=== PATIENT | male | born 1945 | race African-American/Black ===

== ENCOUNTER 2024-11-28 23:01 | Inpatient (IN) | payer MEDICARE, OTHER ==
[~2024-11-28] VITALS: Ht 165.1 cm; Wt 102.1 kg
[2024-11-28 23:59] LABS: BASOPHILS % (AUTO) 0.8 % (0.0-2.0); EOSINOPHILS # (AUTO) 0.3 K/uL (0.0-0.7); EOSINOPHILS % (AUTO) 6.3 % (0.0-6.0); HEMATOCRIT 44 % (39-51); HEMOGLOBIN 14.8 g/dL (13.5-17.5); LYMPHOCYTES # (AUTO) 1.9 K/uL (0.8-4.8); LYMPHOCYTES % (AUTO) 47.4 % (20.0-44.0); MEAN CORPUSCULAR HEMOGLOBIN 31 PG (26.0-33.0); MEAN CORPUSCULAR HGB CONC 33 g/dl (31.0-36.0); MEAN CORPUSCULAR VOLUME 94 fL (80-96); MONOCYTES # (AUTO) 0.4 K/uL (0.1-1.30); MONOCYTES % (AUTO) 8.9 % (2.0-12.0); NEUTROPHILS # (AUTO) 1.5 K/uL (1.8-8.9); NEUTROPHILS % (AUTO) 36.6 % (43.0-81.0); PLATELET COUNT (AUTO) 209 K/uL (150-450); RED BLOOD CELL COUNT(AUTO) 4.71 MIL/uL (4.5-6.0); RED CELL DISTRIBUTION WIDTH 14.3 % (11.5-15.0); WHITE BLOOD COUNT (AUTO) 4.1 K/uL (4.3-11.0)
[2024-11-29 00:04] LABS: CARBON DIOXIDE 26 mmol/L (21-32); CHLORIDE 106 mmol/L (98-107); CREATININE 1.2 mg/dL (0.6-1.3); GLUCOSE 180 mg/dL (74-106); POTASSIUM 3.7 mmol/L (3.5-5.1); SODIUM SERUM 139 mmol/L (136-145); UREA NITROGEN, BLOOD 18 mg/dL (7-18)
[2024-11-29 00:09] LABS: ALANINE AMINOTRANSFERASE 20 U/L (12-78); ALBUMIN 3.5 g/dL (3.4-5.0); ALKALINE PHOSPHATASE 195 U/L (46-116); ASPARTATE AMINOTRANSFERASE 22 U/L (15-37); BILIRUBIN,DIRECT 0.1 mg/dL (0.0-0.2); BILIRUBIN,TOTAL 0.4 mg/dL (0.2-1.0); LIPASE 79 U/L (16-77); TOTAL PROTEIN, SERUM 7.8 g/dL (6.4-8.2)
[2024-11-29] MEDS: ASPIRIN 325 MG TABLET PO ONE (00:36)
[2024-11-29] MEDS ORDERED: OMEP20TA5 PO (00:59)
[2024-11-29] MEDS ORDERED: LISI2.5T2 PO (00:59)
[2024-11-29] MEDS ORDERED: HALO10TA13 PO (00:59)
[2024-11-29] MEDS ORDERED: OMEG1CAP40 PO (00:59)
[2024-11-29] MEDS ORDERED: [UNRECOGNIZED DRUG - CODE] PO (00:59)
[2024-11-29] MEDS ORDERED: SODI650T PO (00:59)
[2024-11-29] MEDS ORDERED: LEVO75TA7 PO (00:59)
[2024-11-29] MEDS ORDERED: LACT10SO58 PO (00:59)
[2024-11-29] MEDS ORDERED: LUBI24CA5 PO (00:59)
[2024-11-29] MEDS ORDERED: INSU100V39 SQ (00:59)
[2024-11-29] MEDS ORDERED: SERT50TA PO (00:59)
[2024-11-29] MEDS ORDERED: PATI8.4P PO (00:59)
[2024-11-29] MEDS ORDERED: DOCU250C14 PO (00:59)
[2024-11-29] MEDS ORDERED: EMPA10TA PO (00:59)
[2024-11-29] MEDS ORDERED: OLAN15TA3 PO (00:59)
[2024-11-29] MEDS ORDERED: FOLI0.4T6 PO (00:59)
[2024-11-29] MEDS ORDERED: EZET10TA15 PO (00:59)
[2024-11-29] MEDS ORDERED: INSU100V7 SQ (00:59)
[2024-11-29] MEDS ORDERED: FURO20TA4 PO (00:59)
[2024-11-29] MEDS ORDERED: MAGNESIUM HYDROXIDE 30 ML UDC PO PRN (01:00)
[2024-11-29] MEDS ORDERED: ONDANSETRON HCL/PF 4 MG/2 ML VIAL IVP PRN (01:00)
[2024-11-29] MEDS ORDERED: Z GUARD REMEDY 4 OZ OINT TP PRN (01:00)
[2024-11-29] MEDS ORDERED: ACETAMINOPHEN 325 MG TABLET PO PRN (01:00)
[2024-11-29] MEDS ORDERED: DEXTROSE 50%-WATER 50 ML DISP.SYRIN IV PRN (01:00)
[2024-11-29 02:32] VITALS: BP 139/78; TEMP 97.7; O2SAT 99
[2024-11-29] MEDS: BLOOD SUGAR DIAGNOSTIC 1 EACH STRIP IN SCH (06:08)
[2024-11-29] MEDS: INSULIN REGULAR, HUMAN 100 UNIT/ML 3 ML VIAL SQ PRN (06:09)
[2024-11-29 07:30] VITALS: BP 148/73; TEMP 97.3; O2SAT 100
[2024-11-29] MEDS: PANTOPRAZOLE 40 MG TABLET.DR PO SCH (08:38)
[2024-11-29] MEDS: ASPIRIN EC 81 MG TABLET.DR PO SCH (08:38)
[2024-11-29] MEDS: EZETIMIBE 10 MG TABLET PO SCH (09:38)
[2024-11-29] MEDS: ATORVASTATIN 10 MG TABLET PO SCH (09:38)
[2024-11-29] MEDS: LACTULOSE 10 G/15 ML UDC (PYXIS) PO SCH (09:38)
[2024-11-29] MEDS: LEVOTHYROXINE SODIUM 75 MCG TABLET PO SCH (09:38)
[2024-11-29] MEDS: SERTRALINE HCL 50 MG TABLET PO SCH (09:39)
[2024-11-29] MEDS: EMPAGLIFLOZIN 10 MG TABLET PO SCH (09:40)
[2024-11-29] MEDS: METOPROLOL TARTRATE 50 MG TABLET PO SCH (09:40)
[2024-11-29 16:00] VITALS: BP 91/65; TEMP 97.3; O2SAT 100
[2024-11-29 16:22] LABS: MAGNESIUM 2.3 mg/dL (1.8-2.4); PHOSPHORUS 2.9 mg/dL (2.5-4.9)
[2024-11-29 21:49] VITALS: BP 112/55; TEMP 97.5; O2SAT 98
[2024-11-30 00:15] VITALS: BP 93/40; TEMP 97.7; O2SAT 96
[2024-11-30 04:00] VITALS: BP 112/42; TEMP 97.7; O2SAT 95
[2024-11-30 08:30] VITALS: BP 138/67; TEMP 98.2; O2SAT 96
[2024-11-30 10:31] LABS: BASOPHILS % (AUTO) 0.8 % (0.0-2.0); EOSINOPHILS # (AUTO) 0.2 K/uL (0.0-0.7); HEMATOCRIT 44 % (39-51); HEMOGLOBIN 14.3 g/dL (13.5-17.5); LYMPHOCYTES # (AUTO) 1.2 K/uL (0.8-4.8); LYMPHOCYTES % (AUTO) 38.7 % (20.0-44.0); MEAN CORPUSCULAR HEMOGLOBIN 31 PG (26.0-33.0); MEAN CORPUSCULAR HGB CONC 33 g/dl (31.0-36.0); MEAN CORPUSCULAR VOLUME 94 fL (80-96); MONOCYTES # (AUTO) 0.3 K/uL (0.1-1.30); MONOCYTES % (AUTO) 9.3 % (2.0-12.0); NEUTROPHILS # (AUTO) 1.4 K/uL (1.8-8.9); NEUTROPHILS % (AUTO) 45.2 % (43.0-81.0); PLATELET COUNT (AUTO) 198 K/uL (150-450); RED BLOOD CELL COUNT(AUTO) 4.66 MIL/uL (4.5-6.0); RED CELL DISTRIBUTION WIDTH 14.5 % (11.5-15.0); WHITE BLOOD COUNT (AUTO) 3.1 K/uL (4.3-11.0)
[2024-11-30 10:41] LABS: CALCIUM, SERUM 9.2 mg/dL (8.5-10.1); CREATININE 1.4 mg/dL (0.6-1.3); PHOSPHORUS 2.9 mg/dL (2.5-4.9); POTASSIUM 4.4 mmol/L (3.5-5.1)
[2024-11-30 16:06] VITALS: BP 106/62; TEMP 97.5; O2SAT 95
[2024-11-30 17:11] VITALS: TEMP 98.1; O2SAT 96
[2024-11-30 20:00] VITALS: BP 126/62; TEMP 98.1; O2SAT 98
[2024-12-01] VITALS: BP 111/47; TEMP 97.3; O2SAT 96
[2024-12-01 07:00] VITALS: BP 119/57; TEMP 97.3; O2SAT 99
[2024-12-01 07:53] LABS: ALBUMIN 3.5 g/dL (3.4-5.0); BILIRUBIN,TOTAL 0.6 mg/dL (0.2-1.0); CALCIUM, SERUM 9.8 mg/dL (8.5-10.1); CREATININE 1.4 mg/dL (0.6-1.3); MAGNESIUM 2.2 mg/dL (1.8-2.4); PHOSPHORUS 2.9 mg/dL (2.5-4.9); POTASSIUM 4.3 mmol/L (3.5-5.1); TOTAL PROTEIN, SERUM 7.7 g/dL (6.4-8.2)
[2024-12-01 16:00] VITALS: BP 114/65; TEMP 97.3; O2SAT 100
[2024-12-01 20:00] VITALS: BP 146/86; TEMP 97.9; O2SAT 99
[2024-12-02 08:00] VITALS: BP 104/59; TEMP 97.5; O2SAT 98
[2024-12-02 08:39] VITALS: BP 104/59
== END 2024-12-02 16:30 | DRG 947 ==
LOC: ER 23:02 → MED 11-29 01:25 → TELE 11-29 02:56 → MED 12-01 18:17
DX: R53.1 Weakness (principal); I21.A1 Myocardial infarction type 2; F03.93 Unspecified dementia, unspecified severity, with mood disturbance; J90 Pleural effusion, not elsewhere classified; E11.22 Type 2 diabetes mellitus with diabetic chronic kidney disease; I25.10 Atherosclerotic heart disease of native coronary artery without angina pectoris; I12.9 Hypertensive chronic kidney disease with stage 1 through stage 4 chronic kidney disease, or unspecified chronic kidney disease; Z79.4 Long term (current) use of insulin; E66.9 Obesity, unspecified; K21.9 Gastro-esophageal reflux disease without esophagitis; N18.9 Chronic kidney disease, unspecified; Z79.84 Long term (current) use of oral hypoglycemic drugs; Z88.8 Allergy status to other drugs, medicaments and biological substances; Z79.890 Hormone replacement therapy; Z79.899 Other long term (current) drug therapy; E78.5 Hyperlipidemia, unspecified; G47.33 Obstructive sleep apnea (adult) (pediatric); R74.8 Abnormal levels of other serum enzymes
CPT/HCPCS: 36415; 71045-TC; 80048-TC; 80053-TC; 80061-TC; 80076-TC; 82962-TC; 83690-TC; 83735-TC; 84100-TC; 84484-TC; 85025-TC; 87081-TC; 93307-TC; 97110-TC; 97116-TC; 97530-TC; G0378; J1815

== ENCOUNTER 2025-06-13 20:49 | Inpatient (IN) | payer MEDICARE, OTHER ==
[~2025-06-13] VITALS: Ht 180.3 cm; Wt 72.6 kg
[~2025-06-13 20:49] MED LIST: DOCU250C14 PO; EMPA10TA PO; EZET10TA15 PO; FOLI0.4T6 PO; FURO20TA4 PO; HALO10TA13 PO; INSU100V39 SQ; INSU100V7 SQ; LACT10SO58 PO; LEVO75TA7 PO; LISI2.5T2 PO; LUBI24CA5 PO; OLAN15TA3 PO; OMEG1CAP40 PO; OMEP20TA5 PO; PATI8.4P PO; SERT50TA PO; SODI650T PO; [UNRECOGNIZED DRUG - CODE] PO
[2025-06-13 21:23] LABS: PLATELET COUNT (AUTO) 192 K/uL (150-450); RED BLOOD CELL COUNT(AUTO) 3.96 MIL/uL (4.5-6.0); RED CELL DISTRIBUTION WIDTH 14.8 % (11.5-15.0); WHITE BLOOD COUNT (AUTO) 6.4 K/uL (4.3-11.0)
[2025-06-13 21:29] LABS: CALCIUM, SERUM 9.2 mg/dL (8.5-10.1); CREATININE 1.7 mg/dL (0.6-1.3); SODIUM SERUM 139 mmol/L (136-145); UREA NITROGEN, BLOOD 34 mg/dL (7-18)
[2025-06-13 21:34] LABS: ALCOHOL, BLOOD < 3 mg/dL (0-10); ASPARTATE AMINOTRANSFERASE 23 U/L (15-37); TOTAL PROTEIN, SERUM 7.3 g/dL (6.4-8.2)
[2025-06-13] MEDS ORDERED: DEXTROSE 50%-WATER 50 ML DISP.SYRIN IV PRN (22:30)
[2025-06-14 00:30] VITALS: BP 113/65; TEMP 98; O2SAT 96
[2025-06-14] MEDS ORDERED: LORAZEPAM 0.5 MG TABLET PO PRN ×2 (00:30)
[2025-06-14] MEDS ORDERED: MAGNESIUM HYDROXIDE 30 ML UDC PO PRN (00:30)
[2025-06-14] MEDS ORDERED: ACETAMINOPHEN 325 MG TABLET PO PRN (00:30)
[2025-06-14] MEDS ORDERED: MAG HYDROX/AL HYDROX/SIMETH 30 ML UDC PO PRN (00:30)
[2025-06-14] MEDS ORDERED: ZOLPIDEM TARTRATE 5 MG TABLET PO PRN (00:30)
[2025-06-14] MEDS: BLOOD SUGAR DIAGNOSTIC 1 EACH STRIP IN ONE (01:04)
[2025-06-14 01:40] VITALS: BP 113/65; TEMP 98; O2SAT 98
[2025-06-14] MEDS: BLOOD SUGAR DIAGNOSTIC 1 EACH STRIP IN SCH (07:30)
[2025-06-14] MEDS: OMEPRAZOLE 20 MG CAPSULE.DR PO SCH (07:30)
[2025-06-14] MEDS ORDERED: LORA-259 PO (07:56)
[2025-06-14] MEDS ORDERED: GLIP5TAB13 PO (07:56)
[2025-06-14] MEDS ORDERED: ATOR10TA PO (07:56)
[2025-06-14] MEDS ORDERED: ACET325T53 PO (07:56)
[2025-06-14] MEDS ORDERED: ASPI-1169 PO (07:56)
[2025-06-14] MEDS ORDERED: GLUC1KIT IM (07:56)
[2025-06-14] MEDS ORDERED: DIVA-76 PO (07:56)
[2025-06-14] MEDS ORDERED: PANT40TA49 PO (07:56)
[2025-06-14] MEDS ORDERED: METO50TA16 PO (07:56)
[2025-06-14] MEDS ORDERED: INSU100V3 SQ (07:56)
[2025-06-14] MEDS: EZETIMIBE 10 MG TABLET PO SCH (08:31)
[2025-06-14] MEDS: EMPAGLIFLOZIN 10 MG TABLET PO SCH (08:31)
[2025-06-14] MEDS: DOCUSATE SODIUM 250 MG CAPSULE PO SCH (08:31)
[2025-06-14] MEDS: LEVOTHYROXINE SODIUM 75 MCG TABLET PO SCH (08:31)
[2025-06-14] MEDS: CYANOCOBALAMIN 500 MCG TABLET PO SCH (08:32)
[2025-06-14] MEDS: FUROSEMIDE 20 MG TABLET PO SCH (08:32)
[2025-06-14] MEDS: LISINOPRIL (5MG) 5 MG TABLET PO SCH (08:32)
[2025-06-14] MEDS: FOLIC ACID 1 MG TABLET PO SCH (08:32)
[2025-06-14] MEDS: INSULIN REGULAR, HUMAN 100 UNIT/ML 3 ML VIAL SQ PRN (11:45)
[2025-06-14] MEDS ORDERED: OLANZAPINE 10 MG VIAL IM PRN (12:30)
[2025-06-14 16:00] VITALS: BP 128/63; TEMP 98.1; O2SAT 99
[2025-06-14 20:00] VITALS: BP 125/53; TEMP 98.1; O2SAT 95
[2025-06-14] MEDS: DIVALPROEX SODIUM 250 MG TABLET.DR PO SCH (21:26)
[2025-06-15 07:40] LABS: PLATELET COUNT (AUTO) 188 K/uL (150-450); RED BLOOD CELL COUNT(AUTO) 4.48 MIL/uL (4.5-6.0); RED CELL DISTRIBUTION WIDTH 14.5 % (11.5-15.0); WHITE BLOOD COUNT (AUTO) 4.3 K/uL (4.3-11.0)
[2025-06-15 08:00] VITALS: BP 135/98; TEMP 98.7; O2SAT 99
[2025-06-15 08:16] LABS: CALCIUM, SERUM 9.2 mg/dL (8.5-10.1); CREATININE 1.4 mg/dL (0.6-1.3); SODIUM SERUM 142.0 mmol/L (136-145); UREA NITROGEN, BLOOD 27.0 mg/dL (7-18)
[2025-06-15 08:34] LABS: LDL 48.0 mg/dL (0-99)
[2025-06-15 09:43] VITALS: BP 108/64
[2025-06-15] MEDS ORDERED: INSULIN REGULAR, HUMAN 100 UNIT/ML 3 ML VIAL SQ PRN (11:30)
[2025-06-15] MEDS ORDERED: ACETAMINOPHEN 325 MG TABLET PO PRN (11:30)
[2025-06-15] MEDS ORDERED: DEXTROSE 50%-WATER 50 ML DISP.SYRIN IV PRN (11:30)
[2025-06-15] MEDS: ASPIRIN 81 MG TAB.CHEW PO SCH (11:53)
[2025-06-15] MEDS ORDERED: BLOOD SUGAR DIAGNOSTIC 1 EACH STRIP IN SCH (12:00)
[2025-06-15 16:00] VITALS: BP 124/56; TEMP 98.6; O2SAT 100
[2025-06-15] MEDS: LACTULOSE 10 G/15 ML UDC (PYXIS) PO SCH (16:17)
[2025-06-15] MEDS: METOPROLOL TARTRATE 50 MG TABLET PO SCH (17:21)
[2025-06-15] MEDS: ATORVASTATIN 10 MG TABLET PO SCH (21:31)
[2025-06-16] MEDS: PANTOPRAZOLE 40 MG TABLET.DR PO SCH (06:34)
[2025-06-17] MEDS: PANTOPRAZOLE 40 MG TABLET.DR PO SCH (07:40)
[2025-06-17 08:00] VITALS: BP 124/52; TEMP 98.2; O2SAT 94
[2025-06-17] MEDS: LORAZEPAM 1 MG TABLET PO PRN (09:47)
[2025-06-17 15:35] VITALS: BP 153/57; TEMP 97.6; O2SAT 99
[2025-06-17 20:00] VITALS: BP 149/72; TEMP 97.5; O2SAT 98
[2025-06-18 08:00] VITALS: BP 144/77; TEMP 98.1; O2SAT 98
[2025-06-18 16:00] VITALS: BP 144/80; TEMP 97.7; O2SAT 100
[2025-06-18 21:04] VITALS: BP 141/64; TEMP 97.7; O2SAT 98
[2025-06-18] MEDS: ZOLPIDEM TARTRATE 5 MG TABLET PO PRN (21:34)
[2025-06-19 08:21] VITALS: BP 105/81; TEMP 98.7; O2SAT 96
[2025-06-19 15:46] VITALS: BP 140/98; TEMP 98.1; O2SAT 98
[2025-06-19 20:00] VITALS: BP 113/86; TEMP 97.9; O2SAT 99
[2025-06-20 08:00] VITALS: BP 127/59; TEMP 97.8; O2SAT 99
[2025-06-20 16:00] VITALS: BP 113/62; TEMP 98.1; O2SAT 99
[2025-06-20] MEDS: Z GUARD REMEDY 4 OZ OINT TP PRN (17:44)
[2025-06-21 08:00] VITALS: BP 130/73; TEMP 98; O2SAT 96
[2025-06-21 14:00] VITALS: BP 124/59; TEMP 98.6; O2SAT 100
[2025-06-21 21:04] VITALS: BP 121/60; TEMP 98.2; O2SAT 97
[2025-06-22 08:00] VITALS: BP 106/90; TEMP 98.1; O2SAT 75
[2025-06-22] MEDS: INSULIN GLARGINE, 100 UNIT/ML CARTRIDGE SQ SCH (12:45)
[2025-06-22 16:00] VITALS: BP 115/66; TEMP 98.1; O2SAT 100
[2025-06-22 20:49] VITALS: BP 112/66; TEMP 97.9; O2SAT 98
[2025-06-23 07:51] LABS: PLATELET COUNT (AUTO) 218 K/uL (150-450); RED BLOOD CELL COUNT(AUTO) 4.89 MIL/uL (4.5-6.0); RED CELL DISTRIBUTION WIDTH 14.8 % (11.5-15.0); WHITE BLOOD COUNT (AUTO) 3.5 K/uL (4.3-11.0)
[2025-06-23 08:37] LABS: ASPARTATE AMINOTRANSFERASE 18.0 U/L (15-37); CALCIUM, SERUM 9.8 mg/dL (8.5-10.1); CREATININE 1.4 mg/dL (0.6-1.3); PHOSPHORUS 3.5 mg/dL (2.5-4.9); SODIUM SERUM 140.0 mmol/L (136-145); TOTAL PROTEIN, SERUM 8.6 g/dL (6.4-8.2); UREA NITROGEN, BLOOD 24.0 mg/dL (7-18)
[2025-06-23] MEDS: GLUCERNA SHAKE 237 ML CAN PO SCH (08:52)
[2025-06-23 16:00] VITALS: BP 110/89; TEMP 98.1; O2SAT 100
[2025-06-23 19:54] VITALS: BP 131/96; TEMP 98; O2SAT 99
[2025-06-24 08:00] VITALS: BP 142/86; TEMP 98.7; O2SAT 100
[2025-06-24 16:00] VITALS: BP 100/55; TEMP 97.5; O2SAT 98
[2025-06-24 20:32] VITALS: BP 125/85; TEMP 97.9; O2SAT 98
[2025-06-25 08:18] VITALS: BP 120/63; TEMP 98.7; O2SAT 97
[2025-06-25] MEDS: DIVALPROEX SODIUM 250 MG TABLET.DR PO SCH (12:05)
[2025-06-25 15:15] VITALS: BP 108/56; TEMP 98.3; O2SAT 99
[2025-06-25 19:59] VITALS: BP 106/57; TEMP 98; O2SAT 99
[2025-06-26 08:00] VITALS: BP 127/57; TEMP 97.8; O2SAT 98
[2025-06-26 09:19] VITALS: BP 135/66
[2025-06-26 16:00] VITALS: BP 102/51; TEMP 98.1; O2SAT 98
[2025-06-26 20:21] VITALS: BP 116/88; TEMP 98.1; O2SAT 98
[2025-06-27 08:00] VITALS: BP 106/56; TEMP 98.1; O2SAT 100
[2025-06-27 16:00] VITALS: BP 116/55; TEMP 98.6; O2SAT 99
[2025-06-27 21:10] VITALS: BP 123/59; TEMP 98.1; O2SAT 100
[2025-06-27 21:41] VITALS: BP 121/64; TEMP 98; O2SAT 100
[2025-06-28 08:00] VITALS: BP 133/63; TEMP 97.7; O2SAT 100
[2025-06-28 09:08] VITALS: BP 133/63
== END 2025-06-28 14:00 | DRG 885 ==
LOC: ER 21:00 → MED 22:50 → GPSOV 06-14 00:51 → GPS 06-14 09:54
PROVIDERS: ADMIT Psychiatry & Neurology Psychiatry; ATTEND Internal Medicine
DX: F20.9 Schizophrenia, unspecified (principal); N18.9 Chronic kidney disease, unspecified; N17.9 Acute kidney failure, unspecified; I13.0 Hypertensive heart and chronic kidney disease with heart failure and stage 1 through stage 4 chronic kidney disease, or unspecified chronic kidney disease; I50.9 Heart failure, unspecified; D63.1 Anemia in chronic kidney disease; E11.22 Type 2 diabetes mellitus with diabetic chronic kidney disease; E03.9 Hypothyroidism, unspecified; F32.A Depression, unspecified; F41.9 Anxiety disorder, unspecified; I25.10 Atherosclerotic heart disease of native coronary artery without angina pectoris; E78.5 Hyperlipidemia, unspecified; K21.9 Gastro-esophageal reflux disease without esophagitis; M62.81 Muscle weakness (generalized); R27.9 Unspecified lack of coordination; N25.0 Renal osteodystrophy; Z11.52 Encounter for screening for COVID-19
CPT/HCPCS: 36415; 80048-TC; 80053-TC; 80061-TC; 80076-TC; 80164-TC; 82962-TC; 83735-TC; 84100-TC; 85025-TC; 87081-TC; 97110-TC; 97112-TC; 97530-TC; 98960; G0378; G0480; J1815